=== PATIENT | male | born 1980 | race Two or more races ===

== ENCOUNTER 2021-01-13 01:57 | Emergency (ER) | payer OTHER ==
[~2021-01-13] VITALS: Ht 188 cm; Wt 78.9 kg
[2021-01-13 01:57] VITALS: BP 144/85
[2021-01-13] MEDS ORDERED: BACI/NEOM/POLY B OINT PKT 1 UDPKT PACKET TP ONE (02:30)
[2021-01-13] MEDS ORDERED: OXYC-128 PO (02:33)
[2021-01-13] MEDS ORDERED: BACI/NEOM/POLY B OINT PKT 1 UDPKT PACKET ONE (02:34)
[2021-01-13] MEDS ORDERED: CEPH500T PO (02:34)
[2021-01-13] MEDS ORDERED: HYDROCODONE/APAP 5/325MG TABLET ONE (02:38)
[2021-01-13] MEDS ORDERED: CEPHALEXIN MONOHYDRATE 500 MG CAPSULE PO ONE ×2 (02:38→03:00)
--- NOTE | 2021-01-13 02:41 | NUR ---
Patient is now in custody of [facility].
[2021-01-13] MEDS ORDERED: HYDROCODONE/APAP 5/325MG TABLET PO ONE (03:00)
== END 2021-01-13 03:12 ==
LOC: ER 02:00
DX: S00.33XA Contusion of nose, initial encounter (principal); S00.83XA Contusion of other part of head, initial encounter; Z79.899 Other long term (current) drug therapy; Y04.0XXA Assault by unarmed brawl or fight, initial encounter; Y93.89 Activity, other specified; Y92.89 Other specified places as the place of occurrence of the external cause; Y99.8 Other external cause status